=== PATIENT | male | born 1970 | race African-American/Black ===

== ENCOUNTER 2019-11-19 08:00 | Emergency (ER) | payer BC ==
[2019-11-19] MEDS ORDERED: HYDROcodone/Acetaminophen 5/325 mg Tablet ONE (08:24)
[2019-11-19] MEDS ORDERED: Dexamethasone 4 MG TAB ONE (08:25)
[2019-11-19] MEDS ORDERED: Ketorolac Tromethamine 60 MG/2 ML VIAL ONE (08:25)
[2019-11-19] MEDS ORDERED: Cyclobenzaprine 10 MG TAB ONE (08:25)
== END 2019-11-19 13:00 | disposition home or self-care (01) ==
LOC: MADERS 08:00
DX: M62.838 Other muscle spasm (principal); Z79.899 Other long term (current) drug therapy
CPT/HCPCS: 96372; 99283; J1885; J8540

== ENCOUNTER 2020-07-31 12:25 | Emergency (ER) | payer BC | END 2020-07-31 14:25 | disposition home or self-care (01) | LOC: MADERS 12:25 | DX: S62.501A Fracture of unspecified phalanx of right thumb, initial encounter for closed fracture (principal); S16.1XXA Strain of muscle, fascia and tendon at neck level, initial encounter; S63.614A Unspecified sprain of right ring finger, initial encounter; S80.812A Abrasion, left lower leg, initial encounter; Y04.0XXA Assault by unarmed brawl or fight, initial encounter | CPT/HCPCS: 29125 ==

== ENCOUNTER 2021-07-15 16:44 | Emergency (ER) | payer BC, OTHER ==
[2021-07-15] MEDS ORDERED: Boostrix 0.5 ML (Tdap) VIAL ONE ×2 (20:17→20:41)
== END 2021-07-15 21:15 | disposition home or self-care (01) ==
LOC: MADERS 16:44
DX: S62.637A Displaced fracture of distal phalanx of left little finger, initial encounter for closed fracture (principal); S42.122A Displaced fracture of acromial process, left shoulder, initial encounter for closed fracture; Z23 Encounter for immunization; W22.8XXA Striking against or struck by other objects, initial encounter; Z79.899 Other long term (current) drug therapy
CPT/HCPCS: 29105; 90471; 90715